=== PATIENT | female | born 1975 | race Two or more races ===

== ENCOUNTER 2020-04-05 09:15 | Outpatient (CLI) | payer BC | END 2020-04-05 23:59 | disposition home or self-care (01) | LOC: WOU 09:15 | PROVIDERS: ATTEND Specialist | DX: M20.009 Unspecified deformity of unspecified finger(s) (principal); E11.9 Type 2 diabetes mellitus without complications; D58.8 Other specified hereditary hemolytic anemias | CPT/HCPCS: G0463 ==

== ENCOUNTER 2020-04-26 09:46 | Outpatient (CLI) | payer BC | END 2020-04-26 23:59 | disposition home or self-care (01) | LOC: WOU 09:46 | PROVIDERS: ATTEND Specialist | DX: M20.099 Other deformity of finger(s), unspecified finger(s) (principal); D58.8 Other specified hereditary hemolytic anemias; E11.9 Type 2 diabetes mellitus without complications | CPT/HCPCS: G0463 ==

== ENCOUNTER 2020-05-31 09:30 | Outpatient (CLI) | payer BC | END 2020-05-31 23:59 | disposition home or self-care (01) | LOC: WOU 09:30 | PROVIDERS: ATTEND Specialist | DX: M20.099 Other deformity of finger(s), unspecified finger(s) (principal); E11.9 Type 2 diabetes mellitus without complications; D58.8 Other specified hereditary hemolytic anemias | CPT/HCPCS: G0463 ==